=== PATIENT | female | born 1975 | race Caucasian/White ===

== ENCOUNTER 2020-07-25 09:09 | Outpatient (REF) | payer OTHER, SELFPAY | END 2020-07-25 09:10 | disposition home or self-care (01) | LOC: HO.LAB 09:09 | PROVIDERS: Visit Provider Internal Medicine | DX: Z20.822 Contact with and (suspected) exposure to COVID-19 (principal) | CPT/HCPCS: 36415; C9803; U0003; U0005 ==

== ENCOUNTER 2025-01-11 08:51 | Outpatient (REF) | payer MEDICARE, MEDICAID, SELFPAY ==
--- OUTSIDE RECORDS SUMMARY | 2025-01-11 09:13 | XMS_ITS | Clinical Summary ---
Author Organization [facility] Address [address] [place] [address] Phone Care Team Providers Care Circuit Breaker Supervisor Name Role Phone Jose J Ceron MD Primary Care Provider [phone] Allergies Active Allergy Reactions Criticality Noted Date Comments Adhesive Tape-Silicones 09/18/2020 Needs PAPER tape Ibuprofen Hives 09/27/2016 Latex Hives Medium 07/03/2024 Medications albuterol sulfate (ProAir RespiClick) 90 mcg/actuation aerosol powdr breath activated Inhale 2 Puffs into the lungs every 4 hours as needed (cough,wheezing shortness of breath). 02/24/20 24 Active cloNIDine (CATAPRES) 0.1 mg tablet Take 1 Tablet by mouth 2 times daily as needed. Active EPINEPHrine (EpiPen 2-Colt) 0.3 mg/0.3 mL injection Inject 0.3 mg into the muscle as needed for Other (anaphylactic reaction). 2-pack. Fill with whichever brand is covered by insurance. 05/16/20 20 Active omeprazole (PriLOSEC) [address] capsule if needed. 05/16/20 20 Active sertraline (ZOLOFT) 100 mg tablet Take 1 Tablet by mouth daily. Active SUMAtriptan (IMITREX) 50 mg tablet MAY REPEAT DOSE ONCE AFTER 2 HOURS, IF NEEDED. 10/15/19 21 Active polyethylene glycol (Golytely) 236-22.74-6.74 -5.86 gram solution Take 4L by mouth once for one dose. May substitue any PEG. Starting at 6PM the night before your procedure drink 1 8oz glasses at your own pace until you complete half of the gallon. Finish 2nd half of the gallon 5 hours before your procedure. 4000 mL 06/27/19 Active Additional Information Patient not taking.Reported on 11/21/2024 bisacodyL (DULCOLAX) 5 mg EC tablet Take 2 tablets by mouth right before beginning bowel prep. See instructions provided by the office 2 tablet 06/27/19 Active Additional Information Patient not taking.Reported on 11/21/2024 zolpidem (AMBIEN) 5 mg tablet TAKE 1/2-1 TABLET BY MOUTH EVERY NIGHT AT BEDTIME NEEDED INSOMNIA 02/24/20 Active hydrOXYzine HCL (ATARAX) 25 mg tablet Take 1 tablet (25 mg total) by mouth 2 (two) times a day if needed for anxiety. 02/24/20 24 Active hydrOXYzine HCL (ATARAX) 50 mg tablet Take 1 tablet (50 mg total) by mouth at bedtime as needed. 03/27/20 24 Active alclomethasone (ACLOVATE) 0.05 % cream Apply topically 2 (two) times a day. 30 g 11/22/19 25 026 Active cetirizine (ZyrTEC) 10 mg tabletIndicati ons:Allergic rhinitis, unspecified TAKE 1 TABLET BY MOUTH 1 TIME EACH DAY. 90 tablet 1 12/25/19 25 Active cetirizine (ZyrTEC) 10 mg tabletIndicati ons:Allergic rhinitis, unspecified Take 1 tablet (10 mg total) by mouth 1 (one) time each day. 30 tablet 11/22/19 25 025 Discontinued Active Problems Problem Noted Date Diagnosed Date Asthma 04/05/2024 Ingrown hair 05/03/2023 Overview (04/05/2024): Last Assessment & Plan: In right axilla. REassured not related to breast. Likely related to shaving. Take care and maybe avoid shaving for a couple weeks to see if resolves. Vitamin D deficiency 07/30/2021 Mixed hyperlipidemia 09/18/2019 Cervical spondylosis 07/04/2019 Major depression, recurrent (CMS/HCC V24) 2018 Overview (04/05/2024): Last Assessment & Plan: I encouraged Latisha to go to Dr. Ceron office today to get a refill of her amitriptyline and to make a follow up appt sooner than currently scheduled. Referred placed to and if insurance not accepted, pt is aware she should call other community therapist. This information was provided in her AVS. Patient contracts for safety. Diarrhea 01/31/2019 Overview (04/05/2024): Last Assessment & Plan: Recommended she follow up with PCP if continuing after discontinuation of abx. Morbid obesity with BMI of 4 0.0-44.9, adult ([facility] V24, [facility] V28) 09/27/2016 Insomnia 07/22/2016 Gastric perforation (CMS/[facility] V24, [facility] V28) 0 12/31/2014 GERD (gastroesophageal reflux disease) 3 Headache 08/02/2008 Encounters Date Type Department Care Team Description 11/21/2024 9:45 AM EDT Office Visit Adult Medicine [address] [phone] Jose J Ceron MD Episode of recurrent major depressive disorder, unspecified depression episode severity ([facility] V24) (Primary Dx); Allergic rhinitis, unspecified; Other fatigue; Snoring; Anxiety 10/16/2024 Telephone Adult Medicine [address] [phone] Jose J Ceron MD Med Refill from Last 3 Months Immunizations Name Administration Dates Next Due Moderna SARS-CoV-2 COVID-19, mRNA, LNP-S, preservative free 10/21/2020 Tdap Tetanus diptheria acell ular pertussis (Boostrix; Adacel) 7yo and older 02/18/2020,04/16/2008 Surgical History Surgery Date Site/Laterality Comments SECTION PROCEDURE: HISTORICAL TONSILLECTOMY PROCEDURE: HISTORICAL TONSILLECTOMY HYSTERECTOMY age 22 PROCEDURE: HISTORICAL HYSTERECTOMY; COMMENT: Ovaries retained, done for heavy bleeding LAPAROSCOPIC GASTRIC BANDING 02/05 PROCEDURE: LAP ADJUSTABLE GASTRIC BAND Medical History Medical History Date Comments Unspecified asthma(493.90) DX:Un specified asthma(493.90) History of laparoscopic adju stable gastric banding 12/26/2012 DX:History of laparoscopic a djustable gastric banding GERD (gastroesophageal reflu x disease) 12/26/2012 DX:GERD (gastroesophageal re flux disease) Carpal tunnel syndrome of right wrist 10/14/2020 DX:Carpal tunnel syndrome of right wrist Anxiety Family History Medical History Relation Name Comments Breast cancer Aunt 1 m 65 Throat cancer Aunt 2 mothers side Other: unknown cancer Aunt 3 metast asized, unknown primary Other: retinoblastoma Daughter 2 year s old. Diabetes Maternal Grandmother Hypertension Maternal Grandmother Diabetes Mother Hypertension Mother Heart attack Uncle Colon cancer Neg Hx Ovarian cancer Neg Hx Pancreatic cancer Neg Hx Prostate cancer Neg Hx Uterine cancer Neg Hx Relation Name Status Comments Aunt 1 m 65 Alive Aunt 2 Aunt 3 Daughter Maternal Grandmother Mother Uncle Social History Tobacco Use Types Packs/Day Years Used Date Smoking Tobacco: Never Smokeless Tobacco: Never Tobacco Cessation:Counseling Given: Not Answered Alcohol Use Standard Drinks/Week Comments Yes 0 (1 standard drink = 0.6 oz pur e alcohol) Interpersonal Safety Answer Date Record ed Physical Abuse 07/11/2024 Verbal Abuse 07/11/2024 Comments Unknown Sex and Gender Information Value Date Recorded Sex Assigned at Female 07/10/2024 4:05 PM EST Legal Sex Female 11:37 PM EST Gender Identity Female 07/10/2024 4:05 PM EST Sexual Orientation Straight 07/10/2024 4: 05 PM EST Obstetrics History Last Filed Vital Signs Vital Sign Reading Time Taken Comments Blood Pressure 114/76 11/21/2024 9:35 AM EDT Pulse 70 11/21/2024 9:35 AM EDT Temperature 36.6 C (97.8 F) 11/21/2024 9:35 AM EDT Respiratory Rate 14 11/21/2024 9:35 AM EDT Oxygen Saturation 100% 11/21/2024 9:35 AM EDT Inhaled Oxygen Concentration - - Weight 77.6 kg (171 lb) 11/21/2024 9:35 AM EDT Height 144.8 cm (4' 9 ) 11/21/2024 9:35 AM EDT Body Mass Index 37 11/21/2024 9:35 AM EDT Plan of Treatment Upcoming Encounters Date Type Department Care Team (Late st Contact Info) Description 02/25/2025 9:00 AM EDT Office Visit Adult Medicine [address] [phone] Merna Carballo NP [address] [place] [address] 08/26/2025 11:30 AM EDT Office Visit Adult Medicine [address] [phone] Jose J Ceron MD [address] [place], [place] [phone] Health Maintenance Due Date Last Done Comments Hepatitis B Vaccines (1 of 3 - 19+ 3-dose series) 1993 Pneumococcal Vaccine: 50+ Years (1 of 2 - PCV) 1993 Medicare Annual Wellness Visit 05/02/2022 Social Influencers of Health Screening 05/02/2022 COVID-19 Vaccine (3 - 2023-2 5 season) 2024 11/14/2020, 10/21/2020 Depression Screening 05/30/2024 02/24/2024 Zoster Vaccines (1 of 2) 2024 Influenza Vaccine (#1) 2025 Breast Cancer Screening 02/27/2026 02/28/20 24, 02/28/2024, 02/24/2017 Cholesterol Screening (Lipid Panel) 02/23/2029 02/24/2024, 02/24/2024 DTaP,Tdap,and Td Vaccines (3 - Td or Tdap) 02/17/2030 02/18/2020, 04/16/2008 Colorectal Cancer Screening: Colonoscopy 07/11/2034 07/11/2024 HIV Screening Completed 02/23/2018 Hepatitis C Screening Completed 02/23/2018 HIB Vaccines Aged Out No longer eligi ble based on patient's age to complete this topic HPV Vaccines Aged Out No longer eligi ble based on patient's age to complete this topic Hepatitis A Vaccines Aged Out No long er eligible based on patient's age to complete this topic IPV Vaccines Aged Out No longer eligi ble based on patient's age to complete this topic MMR Vaccines Aged Out No longer eligi ble based on patient's age to complete this topic Meningococcal ACWY Vaccine Aged Out N o longer eligible based on patient's age to complete this topic Meningococcal B Vaccine Aged Out No l onger eligible based on patient's age to complete this topic RSV Immunization Patients Under 20 months Aged Out No longer eligible b ased on patient's age to complete this topic Varicella Vaccines Aged Out No longer eligible based on patient's age to complete this topic Procedures Procedure Name Priority Date/Time Associated Diagnosis Comments CBC WITH AUTO DIFFERENTIAL Routine 11/21/2024 10:45 AM EDT Other fatigue THYROID STIMULATING HORMONE WITH REFLEX TO FREE T4 AND FREE T3 Routine 11/21/2024 10:45 AM EDT Other fatigue CBC AND DIFFERENTIAL Routine 11/21/2024 10:45 AM EDT Other fatigue COLONOSCOPY Routine 07/11/2024 2:43 PM EST Colon cancer screening SCREENING MAMMOGRAPHY BI 2-VIEW BREAST INC CAD Routine 02/28/2024 3:53 PM EDT Encounter for screening mammogram for malignant neoplasm of breast DEPRESSION SCREENING Routine 02/24/2024 LIPID PANEL Routine 02/24/2024 HEPATITIS C SCREENING Routine 02/23/2018 HIV SCREENING Routine 02/23/2018 from Last 3 Months or Most Recently Relevant to Health Maintenance Results * Thyroid stimulating hormone with reflex to free t4 and free t3 (11/21/2024 10:45 AM EDT) TSH 2.28 0.40 - 4.00 mcIU/mL LAB CHEMISTRY METHOD 11/21/2024 1:16 PM EDT [facility] Blood Venous blood specimen / Unknown Venipuncture / Unknown 11/21/2024 10:45 AM EDT 11/21/2024 10:45 AM EDT us Jose J Ceron MD LAB BLOOD ORDERABLES Final Resu lt [facility] [address] [place] [address], [place] [phone] * (ABNORMAL) CBC auto differential (11/21/2024 10:45 AM EDT) WBC 5.2 4.8 - 10.8 K/mcL LAB HEMETOLOGY METHOD 11/21/2024 12:25 PM EDT [facility] RBC 5.40(H) 3.80 - 4.80 M/mcL LAB HEMETOLOGY METHOD 11/21/2024 12:25 PM EDT [facility] Hemoglobin 15.1 11.5 - 16.0 g/dL LAB HEMETOLOGY METHOD 11/21/2024 12:25 PM EDT [facility] Hematocrit 45.4 35.0 - 47.0 % LAB HEMETOLOGY METHOD 11/21/2024 12:25 PM EDT [facility] MCV 83.9 79.0 - 98.0 FL LAB HEMETOLOGY METHOD 11/21/2024 12:25 PM EDT [facility] MCH 27.9 27.0 - 32.0 pcg LAB HEMETOLOGY METHOD 11/21/2024 12:25 PM EDT [facility] MCHC 33.3 32.0 - 37.0 g/dL LAB HEMETOLOGY METHOD 11/21/2024 12:25 PM EDT [facility] RDW 12.8 11.0 - 15.0 % LAB HEMETOLOGY METHOD 11/21/2024 12:25 PM EDT [facility] Platelets 299 130 - 400 K/mcL LAB HEMETOLOGY METHOD 11/21/2024 12:25 PM EDT [facility] MPV 12.0(H) 7.0 - 11.0 FL LAB HEMETOLOGY METHOD [facility] NRBC 0.0 <1.0 % LAB HEMETOLOGY METHOD 11/21/2024 12:25 PM [facility] NRBC Absolute 0.00 <0.10 K/mcL LAB HEMETOLOGY METHOD 11/21[facility]2024 [facility] Neutrophils Relative 53.2 % LAB HEMETOLOGY METHOD 11/21/2024 12:25 PM [facility] Lymphocytes Relative 37.7 % LAB HEMETOLOGY METHOD 11/21/2024 12:25 PM [facility] Monocytes Relative 7.5 % LAB HEMETOLOGY METHOD 11/21/2024 12:25 PM [facility] Eosinophils Relative 0.8 % LAB HEMETOLOGY METHOD 11/21/2024 12:25 PM [facility] Basophils Relative 0.6 % LAB HEMETOLOGY METHOD 11/21/2024 12:25 PM [facility] Immature Granulocytes Relative 0.2 % LAB HEMETOLOGY METHOD 11/21/2024 12:25 PM [facility] Neutrophils Absolute 2.79 1.50 - 7.00 K/mcL LAB HEMETOLOGY METHOD 11/21/2024 12:25 PM [facility] Lymphocytes Absolute 1.97 1.00 - 5.00 K/mcL LAB HEMETOLOGY METHOD 11/21/2024 12:25 PM [facility] Monocytes Absolute 0.39 0.20 - 1.00 K/mcL LAB HEMETOLOGY METHOD 11/21/2024 12:25 PM [facility] Eosinophils Absolute 0.04 0.00 - 0.50 K/mcL LAB HEMETOLOGY METHOD 11/21/2024 12:25 PM EDT [facility] Basophils Absolute 0.03 0.00 - 0.20 K/mcL LAB HEMETOLOGY METHOD 11/21/2024 12:25 PM EDT [facility] Immature Granulocytes Absolute 0.01 0.00 - 0.03 K/mcL LAB HEMETOLOGY METHOD 11/21/2024 12:25 PM EDT [facility] Blood Venous blood specimen / Unknown Venipuncture / Unknown 11/21/2024 10:45 AM EDT 11/21/2024 10:45 AM EDT us Jose J Ceron MD LAB BLOOD ORDERABLES Final Resu lt [facility] [address] [place] [address], * COLONOSCOPY Anesthesia - MAC; RUST ENDOSCOPY (07/11/2024 2:43 PM EST) Anatomical Region Laterality Modality Endoscopy 07/11/2024 2:19 PM EST Impressions 07/11/2024 2:45 PM EST - One diminutive polyp in the descending colon, removed with a cold biopsy forceps. Resected and retrieved. - Internal hemorrhoids. - The examination was otherwise normal. Recommendation: - Discharge patient to home. - Await pathology results. - Repeat colonoscopy in 10 years for surveillance. Narrative 07/11/2024 2:45 PM EST [facility] GI Patient Name: Morro Mckeon Procedure Date: 07/11/2024 2:19 PM Date of : 1975 Age: 48 Gender: Female Note Status: Finalized Attending MD: Shay Narvaez MD, Procedure Date No Time: 07/11/2024 Procedure: Colonoscopy Indications: Screening for colorectal malignant neoplasm Providers: Shay Narvaez MD Referring MD: Shay Narvaez MD Medicines: Monitored Anesthesia Care Complications: No immediate complications. Estimated blood loss: Minimal. Estimated Blood Loss: Estimated blood loss was minimal. Procedure: Pre-Anesthesia Assessment: - Prior to the procedure, a History and Physical was performed, and patient medications and allergies were reviewed. The patient is competent. The risks and benefits of the procedure and the sedation options and risks were discussed with the patient. All questions were answered and informed consent was obtained. Patient identification and proposed procedure were verified by the physician, the nurse, the window sash installer and the donor services technician in the pre-procedure area in the endoscopy suite. Mental Status Examination: alert and oriented. Airway Examination: normal oropharyngeal airway and neck mobility. Respiratory Examination: clear to auscultation. CV Examination: normal. Prophylactic Antibiotics: The patient does not require prophylactic antibiotics. Prior Anticoagulants: The patient has taken no anticoagulant or antiplatelet agents. ASA Grade Assessment: II - A patient with mild systemic disease. After reviewing the risks and benefits, the patient was deemed in satisfactory condition to undergo the procedure. The anesthesia plan was to use monitored anesthesia care (MAC). Immediately prior to administration of medications, the patient was re-assessed for adequacy to receive sedatives. The heart rate, respiratory rate, oxygen saturations, blood pressure, adequacy of pulmonary ventilation, and response to care were monitored throughout the procedure. The physical status of the patient was re-assessed after the procedure. After I obtained informed consent, the scope was passed under direct vision. Throughout the procedure, the patient's blood pressure, pulse, and oxygen saturations were monitored continuously. The Colonoscope was introduced through the anus and advanced to the cecum, identified by appendiceal orifice and ileocecal valve. The colonoscopy was performed without difficulty. The patient tolerated the procedure well. The quality of the bowel preparation was good. Findings: The perianal and digital rectal examinations were normal. A diminutive polyp was found in the descending colon. The polyp was sessile. The polyp was removed with a cold biopsy forceps. Resection and retrieval were complete. Estimated blood loss was minimal. Internal hemorrhoids were found during retroflexion. The hemorrhoids were Grade I (internal hemorrhoids that do not prolapse). The exam was otherwise without abnormality. Procedure Code(s): --- Professional --- 17961, Colonoscopy, flexible; with biopsy, single or multiple Diagnosis Code(s): --- Professional --- D12.4, Benign neoplasm of descending colon CPT copyright 2020 [employer]. All rights reserved. The codes documented in this report are preliminary and upon magnetic tape composer operator review may be revised to meet current compliance requirements. Shay Narvaez MD 07/11/2024 2:45:41 PM This report has been signed electronically.Shay Narvaez MD Number of Addenda: 0 Note Initiated On: 07/11/2024 2:19 PM Scope Withdrawal Time: 0 hours 11 minutes 38 seconds Scope In: 2:28:08 PM Scope Out: 2:42:43 PM Endoscopy Department at [facility] - [address] [place] [phone] Procedure Note Shay Narvaez MD - 07/11/2024 [facility] GI Patient Name: Morro Mckeon Procedure Date: 07/11/2024 2:19 PM Date of : 1975 Age: 48 Gender: Female Note Status: Finalized Attending MD: Shay Narvaez MD, Procedure Date No Time: 07/11/2024 Procedure: Colonoscopy Indications: Screening for colorectal malignant neoplasm Providers: Shay Narvaez MD Referring MD: Shay Narvaez MD Medicines: Monitored Anesthesia Care Complications: No immediate complications. Estimated blood loss: Minimal. Estimated Blood Loss: Estimated blood loss was minimal. Procedure: Pre-Anesthesia Assessment: - Prior to the procedure, a History and Physicalwas performed, and patient medications and allergieswere reviewed. The patient is competent. The risks and benefits of the procedure and the sedation optionsand risks were discussed with the patient. Allquestions were answered and informed consent was obtained. Patient identification and proposed procedure were verified by the physician, the nurse, theanesthetist and the donor services technician in the pre-procedure area in the endoscopy suite. Mental Status Examination: alertand oriented. Airway Examination: normal oropharyngeal airway and neck mobility. Respiratory Examination: clear to auscultation. CV Examination: normal. Prophylactic Antibiotics: The patient does notrequire prophylactic antibiotics. Prior Anticoagulants: The patient has taken no anticoagulant or antiplatelet agents. ASA Grade Assessment: II - A patient withmild systemic disease. After reviewing the risks and benefits, the patient was deemed in satisfactory condition to undergo the procedure. The anesthesia plan was to use monitored anesthesia care (MAC). Immediately prior to administration of medications, the patient was re-assessed for adequacy to receive sedatives. The heart rate, respiratory rate, oxygen saturations, blood pressure, adequacy of pulmonary ventilation, and response to care were monitored throughout the procedure. The physical status ofthe patient was re-assessed after the procedure. After I obtained informed consent, the scope was passed under direct vision. Throughout theprocedure, the patient's blood pressure, pulse, and oxygen saturations were monitored continuously. The Colonoscope was introduced through the anus and advanced to the cecum, identified by appendiceal orifice and ileocecal valve. The colonoscopy was performed without difficulty. The patient tolerated the procedure well. The quality of the bowel preparation was good. Findings: The perianal and digital rectal examinations were normal. A diminutive polyp was found in the descendingcolon. The polyp was sessile. The polyp was removed with a cold biopsy forceps. Resection and retrieval were complete. Estimated blood loss was minimal. Internal hemorrhoids were found duringretroflexion. The hemorrhoids were Grade I (internal hemorrhoids that do not prolapse). The exam was otherwise without abnormality. Procedure Code(s): --- Professional --- 69337, Colonoscopy, flexible; with biopsy, singleor multiple Diagnosis Code(s): --- Professional --- D12.4, Benign neoplasm of descending colon CPT copyright 2020 [employer]. All rights reserved. The codes documented in this report are preliminary and upon magnetic tape composer operator reviewmay be revised to meet current compliance requirements. Shay Narvaez MD 07/11/2024 2:45:41 PM This report has been signed electronically.Shay Narvaez MD Number of Addenda: 0 Note Initiated On: 07/11/2024 2:19 PM Scope Withdrawal Time: 0 hours 11 minutes 38 seconds Scope In: 2:28:08 PM Scope Out: 2:42:43 PM Endoscopy Department at [facility] - [address] [place] [phone] IMPRESSION: - One diminutive polyp in the descending colon, removed with a cold biopsy forceps. Resected and retrieved. - Internal hemorrhoids. - The examination was otherwise normal. Recommendation: - Discharge patient to home. - Await pathology results. - Repeat colonoscopy in 10 years forsurveillance. us Shay Narvaez MD GI~PROCEDURE ORDERABLES Fin al Result * SCREENING MAMMOGRAPHY BI 2-VIEW BREAST INC CAD (02/28/2024 3:53 PM EDT) Anatomical Region Laterality Modality Radiographic Gillian ging 05/03/2023 11:4 3 AM EST Narrative 02/29/2024 1:43 PM EDT This is a summary report. The complete report is available in the patient's medical record. If you cannot access the medical record, please contact the sending organization for a detailed fax or copy. Full field digital screening tomosynthesis mammography, reviewed with CAD and compared to previous. The breast tissue is heterogeneously dense, limiting sensitivity. No suspicious mass, architectural distortion or suspicious calcifications are identified. IMPRESSION: : Dense breast tissue, limiting the sensitivity of mammography. No mammographic evidence of malignancy. BIRADS 1-Negative; N. Breast density: The breasts are heterogeneously dense, which may obscure small masses. 5 year breast cancer risk assessment N/A Lifetime breast cancer risk assessment N/A Breast cancer risk category Breast cancer risk not assessed Location: [facility], [address] [place] [address], [phone], [phone] Procedure Note Sybil aTm MD - 03/27/2024 This is a summary report. The complete report is available in thepatient's medical record. If you cannot access the medical record, pleasecontact the sending organization for a detailed fax or copy. Full field digital screening tomosynthesis mammography, reviewed with CADand compared to previous. The breast tissue is heterogeneously dense,limiting sensitivity. No suspicious mass, architectural distortion orsuspicious calcifications are identified. IMPRESSION: : Dense breast tissue, limiting the sensitivity of mammography. Nomammographic evidence of malignancy. BIRADS 1-Negative; N. Breast density: The breasts are heterogeneously dense, which may obscuresmall masses. 5 year breast cancer risk assessment N/A Lifetime breast cancer risk assessment N/A Breast cancer risk category Breast cancer risk not assessed Location: [facility], [address] [place] [address], [phone], [phone] us Angie E Eppsteiner MD IMG XR PROCEDURES Final Res ult * Depression Screening (02/24/2024) Pathologist [facility] Depression Screening Abstracted Historical Provider HEALTH MAINTENANCE Final Result * (ABNORMAL) Lipid panel (02/24/2024) [facility] LDL/HDL Ratio 3 0 - 4 Triglycerides 154(A) 0 - 150 mg/dL Cholesterol 168 0 - 200 mg/dL HDL 49 >=40 mg/dL LDL Cholesterol 89 0 - 100 mg/dL Blood Venous blood specimen / Unknown Result [facility] Historical Provider LAB BLOOD ORDERABLES Sho l Result * HIV Screening (02/23/2018) [facility] HIV Screening Abstracted [facility] Provider HEALTH MAINTENANCE Final Result * Hepatitis C Screening (02/23/2018) [facility] Hepatitis C Screening Abstracted [facility] Provider HEALTH MAINTENANCE Final Result from Last 3 Months or Most Recently Relevant to Health Maintenance Insurance MEDICARE MEDICAID - [place] Care Teams Circuit Breaker Supervisor Relationship Specialty Start Date End Date Jose J Ceron MD [address] [place] [phone] PCP - General 01/25/07
--- NOTE | 2025-01-11 09:43 | MHC.AU.HA1 ---
Hearing Aid Evaluation Date of Visit: 01/11/25 Historical Information: Description of Hearing: Mild sloping to severe sensorineural hearing loss Au as evaluated at ENT on 12/12/2024. Current personal amplification information, if applicable: NONE Summary: Jazmine reports hearing declined rapidly following stomach infection and surgery in 2014. She notes significant difficulty hearing speech, trouble in groups and restaurants. Discussed benefits and limitations of amplification and adjustment to amplification. Reviewed hearing aid options. Recommended RITE style hearing aid, binaural. Jazmine chose rechargeable. She has an iPhone that she would like to be able to pair the hearing aids with. Hearing Aid Prescription: Based on the individual?s shared listening needs, communication environments, dexterity, desire for connectivity, and personal preferences, the following prescription for amplification has been made: Right ear: Make, Model, Color: Oticon Intent 2 R chroma beige Battery Size: Rechargeable Child Care Aide/Slim Tube: 2/85 Type of Earmold/Dome/CShell/SlimTip: 8mm dbl guillory Left ear: Make, Model, Color: Oticon Intent 2 R chroma beige Battery Size: Rechargeable Child Care Aide/Slim Tube: 2/85 Type of Earmold/Dome/CShell/SlimTip: 8mm dbl kahlil Plan of Care: Patient wishes to purchase hearing aids as prescribed Action Taken/Action Needed: Hearing Instrument Fitting to be scheduled when materials arrive Primary Diagnosis: H90.3 Bilateral Sensorineural Hearing Loss Signature: Provider: Delores Garza, CCC-A
== END 2025-01-11 08:52 | disposition home or self-care (01) ==
LOC: HO.HAP 08:51
PROVIDERS: PCP Internal Medicine; Visit Provider Otolaryngology
DX: Z46.1 Encounter for fitting and adjustment of hearing aid (principal); H90.3 Sensorineural hearing loss, bilateral
CPT/HCPCS: 92591

== ENCOUNTER 2025-02-14 12:35 | Outpatient (REF) | payer MEDICARE, MEDICAID, SELFPAY ==
--- NOTE | 2025-02-14 13:34 | MHC.AU.HA2 ---
Hearing Instrument Fitting- Adult- Binaural Date of Visit: 02/14/25 Hearing Instruments Dispensed: Right Ear: Make, Model, Color, Serial Number: Oticon Intent 2 miniRITE-R SN: [id number] Color: Chroma Beige Bumper Machine Operator Repair Warranty: 02/14/2028 Bumper Machine Operator Loss and Damage Warranty: 02/14/2028 [facility] Service Plan: 02/14/2026 Battery Size: Rechargeable Direct Support Worker/Slim Tube: 2/85 Earmold/Dome/CShell/SlimTip: 8mm double guillory dome (no retention tail) Type of Wax Guard: miniFit Left Ear: Make, Model, Color, Serial Number: Oticon Intent 2 miniRITE-R SN: [id number] Color: Chroma Beige Bumper Machine Operator Repair Warranty: 02/14/2028 Bumper Machine Operator Loss and Damage Warranty: 02/14/2028 [facility] Service Plan: 02/14/2026 Battery Size: Rechargeable Direct Support Worker/Slim Tube: 2/85 Earmold/Dome/CShell/SlimTip: 8mm double guillory dome (no retention tail) Type of Wax Guard: miniFit Accessories/Assistive Technology: Oticon Grizzly Worker MiniRITE SN: [id number] Summary of Fitting: Accompanied by daughter. Ran feedback analyzer and real ear measures. Good match to target, left ear; Underfit right ear due to limits of feedback curve. Discussed custom EMs, will readdress at follow up. Otherwise comfortable at real ear settings. Discussed care, use, and rechargeability including manually turning on/off, VC use, and changing domes and wax guards. Practiced insertion and removal. Paired to cell phone. Encouraged daily, consistent use and explained acclimatization period. Recommendations: A hearing instrument follow-up was scheduled. Diagnosis Code(s): Primary Diagnosis: H90.3 Bilateral Sensorineural Hearing Loss Signature: Provider: Delores Jones, [facility]
--- OUTSIDE RECORDS SUMMARY | 2025-02-14 14:40 | XMS_ITS ---
Author Name [facility] Organization Unknown Care Team Organization Name Specialty Phone Email Start Date End Da te [facility] Tiana Velasco Primary Care 11/05/20222023 [facility] SEAN LR Primary Care 04/06/2022
--- OUTSIDE RECORDS SUMMARY | 2025-02-14 14:40 | XMS_ITS | Clinical Summary ---
Author Organization [facility] Address [address] [place] [address] Phone Care Team Providers Care Manager Community Outreach Name Role Phone Jose J Ceron MD Primary Care Provider [phone] Allergies Active Allergy Reactions Criticality Noted Date Comments Adhesive Tape-Silicones 09/18/2020 Needs PAPER tape Ibuprofen Hives 09/27/2016 Latex Hives Medium 07/03/2024 Medications albuterol sulfate (ProAir RespiClick) 90 mcg/actuation aerosol powdr breath activated 02/24/20 24 Active EPINEPHrine (EpiPen 2-Colt) 0.3 mg/0.3 mL injection Inject 0.3 mg into the muscle as needed for Other (anaphylactic reaction). 2-pack. Fill with whichever brand is covered by insurance. 05/16/20 20 Active sertraline (ZOLOFT) 100 mg tablet Take 1 Tablet by mouth daily. Active hydrOXYzine HCL (ATARAX) 50 mg tablet Take 1 tablet (50 mg total) by mouth at bedtime as needed. 03/27/20 24 Active alclomethasone (ACLOVATE) 0.05 % cream Apply topically 2 (two) times a day. 30 g 11/22/19 25 026 Active cetirizine (ZyrTEC) 10 mg tabletIndicatio ns:Allergic rhinitis, unspecified TAKE 1 TABLET BY MOUTH 1 TIME EACH DAY. 90 tablet 1 12/25/19 25 Active cloNIDine (CATAPRES) 0.1 mg tablet Take 1 Tablet by mouth 2 times daily as needed. Discontinu ed(Therapy completed) omeprazole (PriLOSEC) [address] capsule if needed. 05/16/20 20 Discontinu ed(Therapy completed) SUMAtriptan (IMITREX) 50 mg tablet MAY REPEAT DOSE ONCE AFTER 2 HOURS, IF NEEDED. 10/15/19 21 Discontinu ed(Therapy completed) polyethylene glycol (Golytely) 236-22.74-6.74 -5.86 gram solution Take 4L by mouth once for one dose. May substitue any PEG. Starting at 6PM the night before your procedure drink 1 8oz glasses at your own pace until you complete half of the gallon. Finish 2nd half of the gallon 5 hours before your procedure. 4000 mL 06/27/19 Discontinu ed(Therapy completed) bisacodyL (DULCOLAX) 5 mg EC tablet Take 2 tablets by mouth right before beginning bowel prep. See instructions provided by the office 2 tablet 06/27/19 Discontinu ed(Therapy completed) zolpidem (AMBIEN) 5 mg tablet TAKE 1/2-1 TABLET BY MOUTH EVERY NIGHT AT BEDTIME NEEDED INSOMNIA 02/24/20 24 Discontinu ed(Therapy completed) hydrOXYzine HCL (ATARAX) 25 mg tablet Take 1 tablet (25 mg total) by mouth 2 (two) times a day if needed for anxiety. 02/24/20 24 Discontinu ed(Therapy completed) nitrofurantoin, macrocrystal-mo nohydrate, (MACROBID) 100 mg capsule Take 1 capsule (100 mg total) by mouth 2 (two) times a day for 5 days. 10 each 02/09/20 25 Active Problems Problem Noted Date Diagnosed Date Asthma 04/05/2024 Ingrown hair 05/03/2023 Overview (04/05/2024): Last Assessment & Plan: In right axilla. REassured not related to breast. Likely related to shaving. Take care and maybe avoid shaving for a couple weeks to see if resolves. Vitamin D deficiency 07/30/2021 Mixed hyperlipidemia 09/18/2019 Cervical spondylosis 07/04/2019 Major depression, recurrent ([facility] V24) 2018 Overview (04/05/2024): Last Assessment & [...] obesity with BMI of 4 0.0-44.9, adult ([facility] V24, [facility] V28) 09/27/2016 Insomnia 07/22/2016 Gastric perforation ([facility] V24, [facility] V28) 0 12/31/2014 GERD (gastroesophageal reflux disease) 3 Headache 08/02/2008 Encounters Date Type Department Care Team Description 02/06/2025 11:15 AM EDT Office Visit Adult Medicine [address] [phone] Jaymie Andre PA Dysuria (Primary Dx) 02/06/2025 Nurse Triage Adult Medicine [address] [phone] Jose J Ceron MD 11/21/2024 9:45 AM EDT Office Visit Adult Medicine [address] [phone] Jose J Ceron MD Episode of recurrent major depressive disorder, unspecified depression episode severity ([facility] V24) (Primary Dx); Allergic rhinitis, unspecified; Other fatigue; Snoring; Anxiety from Last 3 Months Immunizations Name Administration [...] Sign Reading Time Taken Comments Blood Pressure 118/68 02/06/2025 11:29 AM EDT Pulse 58 02/06/2025 11:29 AM EDT Temperature 36.2 C (97.1 F) 02/06/2025 11:29 AM EDT Respiratory Rate 16 02/06/2025 11:2 9 AM EDT Oxygen Saturation 98% 02/06/2025 11: 29 AM EDT Inhaled Oxygen Concentration - - Weight 79.3 kg (174 lb 14.4 oz) 025 11:29 AM EDT Height 143.5 cm (4' 8.5 ) 02/06/2025 11 :29 AM EDT Body Mass Index 38.52 02/06/2025 11:29 AM EDT Plan of Treatment Upcoming Encounters Date Type Department Care Team (Late st Contact Info) Description 02/25/2025 9:00 AM EDT Office Visit Adult Medicine [address] [phone] Merna Carballo NP [address] [place] [address] 08/26/2025 11:30 AM EDT Office Visit [address] [phone] Jose J Ceron MD [address] [place] [address] Health Maintenance Due Date Last Done Comments Hepatitis B Vaccines (1 of 3 - 19+ 3-dose series) 1993 Pneumococcal Vaccine: 50+ Years (1 of 2 - PCV) 1993 Medicare Annual Wellness Visit 05/02/2022 Social Influencers of Health Screening 05/02/2022 Depression Screening 05/30/2024 02/24/2024 Zoster Vaccines (1 of 2) 2024 COVID-19 Vaccine (3 - 2024-2 6 season) 2025 11/14/2020, 10/21/2020 Influenza Vaccine (#1) 2025 Breast Cancer Screening [...] Procedure Name Priority Date/Time Associated Diagnosis Comments PIKE URINE CULTURE TUBE Routine 02/07/20 12:26 PM EDT Dysuria URINALYSIS WITH REFLEX MICROSCOPIC AND CULTURE Routine 02/06/2025 11:58 AM EDT Dysuria URINALYSIS WITH REFLEX MICROSCOPIC AND CULTURE Routine 02/06/2025 11:58 AM EDT Dysuria CULTURE URINE Routine 02/06/2025 11:58 AM EDT Dysuria POLYSOMNOGRAPHY Routine 01/18/2025 10:49 AM EDT CBC WITH AUTO DIFFERENTIAL Routine 11/21/2024 10:45 [...] Recently Relevant to Health Maintenance Results * Pike urine culture tube (02/06/2025 12:26 PM EDT) Pathologist [facility] Extra Tube Hold for add-ons. 02/06/2025 3:[address] [facility] Comment:Auto resulted. Urine Urine specimen obtained by clean catch procedure / Unknown Non-blood Collection / Unknown 02/06/2025 12:26 PM EDT 02/06/2025 12:26 PM EDT us Jaymie SALDIVAR LAB URINE ORDERABLES Final Re sult [facility] [address] [place] [address], [place] [phone] * (ABNORMAL) Urinalysis with reflex microscopic and culture (02/06/2025 11:58 AM EDT) Pathologist [facility] Specific [place] Urine 1.011 1.003 - 1.030 LAB URINALYSIS - AUTOMATED METHOD 02/06/2025 2:[address] [facility] pH, Urine 8.0 5.0 - 8.0 pH LAB URINALYSIS - AUTOMATED METHOD 02/06/2025 2:[address] [facility] Leukocytes, Urine Trace(A) Negative LAB URINALYSIS - AUTOMATED METHOD 02/06/2025 2:[address] [facility] Nitrite, Urine Negative Negative LAB URINALYSIS - AUTOMATED METHOD 02/06/2025 2:12 PM [facility] Protein, Urine Negative <=Trace mg/dL LAB URINALYSIS - AUTOMATED METHOD 02/06/2025 2:12 PM [facility] Glucose, Urine Negative Negative mg/dL LAB URINALYSIS - AUTOMATED METHOD 02/06/2025 2:12 PM [facility] Ketones, Urine Negative Negative mg/dL LAB URINALYSIS - AUTOMATED METHOD 02/06/2025 2:12 PM [facility] Urobilinogen , Urine 0.2 0.2 - 1.0 mg/dL LAB URINALYSIS - AUTOMATED METHOD 02/06/2025 2:12 PM [facility] Bilirubin, Urine Negative Negative LAB URINALYSIS - AUTOMATED METHOD 02/06/2025 2:12 PM [facility] Blood, Urine Negative Negative LAB URINALYSIS - AUTOMATED METHOD 02/06/2025 2:12 PM [facility] RBC, Urine 1.8 0 - 4 /HPF LAB URINALYSIS - AUTOMATED METHOD 02/06/2025 2:12 PM [facility] WBC, Urine 31.9(H) 0 - 4 /HPF LAB URINALYSIS - AUTOMATED METHOD 02/06/2025 2:12 PM [facility] Squamous Epithelial, Urine 55 0 - 60 /LPF LAB URINALYSIS - AUTOMATED METHOD 02/06/2025 2:12 PM [facility] Bacteria, Urine Moderate(A) Negative /HPF LAB URINALYSIS - AUTOMATED METHOD 02/06/2025 2:12 PM [facility] Hyaline Casts, Urine 3.2(H) 0 - 3 /LPF LAB URINALYSIS - AUTOMATED METHOD 02/06/2025 2:12 PM [facility] Urine Urine specimen obtained by clean catch procedure / Unknown Non-blood Collection / Unknown 02/06/2025 11:58 AM EDT 02/06/2025 11:58 AM EDT us Jaymie SALDIVAR LAB URINE ORDERABLES Final Re sult [facility] [address] [place] [address], * (ABNORMAL) Culture urine (02/06/2025 11:58 AM EDT) Culture, Urine 50,000-100,000 CFU/mL Escherichia coli(A) FLAKO 02/09/2025 9:26 AM EDT [facility] Comment: The organism value for this result has been updated. These results have been appended to the previously preliminary verified report. This is an edited result. Previous organism was Gram negative bacilli on 02/08/2025 at 1139 EDT. Urine Urine specimen obtained by clean catch procedure / Unknown Non-blood Collection / Unknown 02/06/2025 11:58 AM EDT 02/06/2025 2:12 PM EDT Narrative Organism Antibiotic Method Susceptibility Escherichia coli Amoxicillin/Clavulanate FLAKO 4 ug/ml: Susceptible Escherichia coli Ampicillin/Sulbactam FLAKO <=2 ug/ml: Susceptible Escherichia coli Piperacillin/Tazobactam FLAKO <=4 ug/ml: Susceptible Escherichia coli Cefazolin (Urine) FLAKO <=1 ug/ml: Susceptible Escherichia coli Cefoxitin FLAKO <=4 ug/ml: Susceptible Escherichia coli Ceftazidime FLAKO <=0.5 ug/ml: Susceptible Escherichia coli Ceftriaxone FLAKO <=0.25 ug/ml: Susceptible Escherichia coli Cefepime FLAKO <=0.12 ug/ml: Susceptible Escherichia coli Meropenem FLAKO <=0.25 ug/ml: Susceptible Escherichia coli Amikacin FLAKO 4 ug/ml: Susceptible Escherichia coli Gentamicin FLAKO <=1 ug/ml: Susceptible Escherichia coli Ciprofloxacin FLAKO 0.25 ug/ml: Susceptible Escherichia coli Levofloxacin FLAKO 0.5 ug/ml: Susceptible Escherichia coli Nitrofurantoin FLAKO <=16 ug/ml: Susceptible Escherichia coli Trimethoprim/Sulfamethoxazole FLAKO <=20 ug/ml: Susceptible Jaymie SALDIVAR LAB MICROBIOLOGY - GENERAL OR DERABLES Final Result [facility] [address] [place] [address], [place] [phone] * Polysomnography (01/18/2025 10:49 AM EDT) Historical Provider [facility]ENTER ORDERABLES F inal Result * Thyroid stimulating hormone with reflex to free t4 and free t3 (11/21/2024 10:45 AM EDT) [facility] TSH 2.28 0.40 - 4.00 mcIU/mL LAB CHEMISTRY METHOD 11/21/2024 1:[address] [facility] Blood Venous blood specimen / Unknown Venipuncture / Unknown 11/21/2024 10:45 AM EDT 11/21/2024 10:45 AM EDT Jose J Ceron MD LAB BLOOD ORDERABLES Final Resu lt [facility] [address] [place] [address], [place] [phone] * (ABNORMAL) CBC auto differential (11/21/2024 10:45 AM EDT) Pathologist [facility] WBC 5.2 4.8 - 10.8 K/mcL LAB HEMETOLOGY METHOD 11/21/2024 12:[address] [facility] RBC 5.40(H) 3.80 - 4.80 M/mcL LAB HEMETOLOGY METHOD 11/21/2024 12:[address] [facility] Hemoglobin 15.1 11.5 - 16.0 g/dL LAB HEMETOLOGY METHOD 11/21/2024 12:[address] [facility] Hematocrit 45.4 35.0 - 47.0 % LAB HEMETOLOGY METHOD 11/21/2024 12:[address] [facility] MCV 83.9 79.0 - 98.0 FL LAB HEMETOLOGY METHOD 11/21/2024 12:[address] [facility] MCH 27.9 27.0 - 32.0 pcg LAB HEMETOLOGY METHOD [facility] MCHC 33.3 32.0 - 37.0 g/dL LAB HEMETOLOGY METHOD 11/21/2024 12:[address] [facility] RDW 12.8 11.0 - 15.0 % LAB HEMETOLOGY METHOD 11/21[facility]2024 [facility] Platelets 299 130 - 400 K/mcL LAB HEMETOLOGY METHOD 11/21[facility]2024 [facility] MPV 12.0(H) 7.0 - 11.0 FL LAB HEMETOLOGY METHOD 11/21/2024 12:[address] [facility] NRBC 0.0 <1.0 % LAB HEMETOLOGY METHOD [facility]/21[facility]2024 [facility] NRBC Absolute 0.00 <0.10 K/mcL LAB HEMETOLOGY METHOD 11/21/2024 12:25 PM [facility] Neutrophils Relative 53.2 % LAB HEMETOLOGY METHOD 11/21/2024 12:[address] [facility] Lymphocytes Relative 37.7 % LAB HEMETOLOGY METHOD 11/21[facility]2024 [facility] Monocytes Relative 7.5 % LAB HEMETOLOGY METHOD 11/21/2024 12:25 PM [facility] Eosinophils Relative 0.8 % LAB HEMETOLOGY METHOD 11/21[facility]2024 [facility] Basophils Relative 0.6 % LAB HEMETOLOGY METHOD 11/21/2024 12:[address] [facility] Immature Granulocytes Relative 0.2 % LAB HEMETOLOGY METHOD 11/21/2024 12:[address] [facility] Neutrophils Absolute 2.79 1.50 - 7.00 K/mcL LAB HEMETOLOGY METHOD 11/21/2024 12:[address] [facility] Lymphocytes Absolute 1.97 1.00 - 5.00 K/mcL LAB HEMETOLOGY METHOD 11/21/2024 12:[address] [facility] Monocytes Absolute 0.39 0.20 - 1.00 K/mcL LAB HEMETOLOGY METHOD 11/21/2024 12:[address] [facility] Eosinophils Absolute 0.04 0.00 - 0.50 K/mcL LAB HEMETOLOGY METHOD 11/21/2024 12:[address] [facility] Basophils Absolute 0.03 0.00 - 0.20 K/mcL LAB HEMETOLOGY METHOD 11/21/2024 12:[address] [facility] Immature Granulocytes Absolute 0.01 0.00 - 0.03 K/mcL LAB HEMETOLOGY METHOD 11/21/2024 12:[address] [facility] Blood Venous blood specimen / Unknown Venipuncture / Unknown 11/21/2024 10:45 AM EDT 11/21/2024 10:45 AM EDT us Jose J Ceron MD LAB BLOOD ORDERABLES Final Resu lt [facility]) [facility] [address] [place] [address], * COLONOSCOPY Anesthesia - MAC; [facility] ENDOSCOPY (07/11/2024 2:43 PM EST) Anatomical Region [...] for surveillance. Narrative 07/11/2024 2:45 PM EST [facility] GI Patient Name: Morro Mckeon Procedure Date: [...] verified by the physician, the nurse, the platinum smith and the speech therapist technician in the pre-procedure area in the [...] without abnormality. Procedure Code(s): --- Professional --- 67048, Colonoscopy, flexible; with biopsy, single or multiple Diagnosis Code(s): --- Professional --- D12.4, Benign neoplasm of descending colon CPT copyright 2020 [employer]. All rights reserved. The codes documented in this report are preliminary and upon receiver review may be revised to meet current compliance requirements. Shay Narvaez MD 07/11/2024 2:45:41 PM This report has been signed electronically.Shay Narvaez MD Number of Addenda: 0 Note Initiated On: 07/11/2024 2:19 PM Scope Withdrawal Time: 0 hours 11 minutes 38 seconds Scope In: 2:28:08 PM Scope Out: 2:42:43 PM Endoscopy Department at [facility] - [address] [place] [phone] Procedure Note Shay Narvaez MD - 07/11/2024 [facility] GI Patient Name: Morro Mckeon Procedure Date: [...] the physician, the nurse, theanesthetist and the speech therapist technician in the pre-procedure area in the [...] without abnormality. Procedure Code(s): --- Professional --- 79450, Colonoscopy, flexible; with biopsy, singleor multiple Diagnosis Code(s): --- Professional --- D12.4, Benign neoplasm of descending colon CPT copyright 2020 [employer]. All rights reserved. The codes documented in this report are preliminary and upon receiver reviewmay be revised to meet current compliance requirements. Shay Narvaez MD 07/11/2024 2:45:41 PM This report has been signed electronically.Shay Narvaez MD Number of Addenda: 0 Note Initiated On: 07/11/2024 2:19 PM Scope Withdrawal Time: 0 hours 11 minutes 38 seconds Scope In: 2:28:08 PM Scope Out: 2:42:43 PM Endoscopy Department at [facility] - [address] [place] [phone] IMPRESSION: - One diminutive polyp in the descending colon, removed with a cold biopsy forceps. Resected and retrieved. - Internal hemorrhoids. - The examination was otherwise normal. Recommendation: - Discharge patient to home. - Await pathology results. - [facility] Shay Narvaez MD GI~PROCEDURE ORDERABLES Fin al [...] category Breast cancer risk not assessed Location: [facility], [address] [place] [address], [place], [address], [phone] Procedure Note Sybil Tam MD - 03/27/2024 This is a summary [...] category Breast cancer risk not assessed Location: [facility], [address] [place] [address], [address], [phone] Result [facility] Angie Aleman MD IMG XR PROCEDURES Final Res ult * Depression Screening (02/24/2024) [facility] Depression Screening Abstracted Result [facility] Historical Provider HEALTH MAINTENANCE Final Result * (ABNORMAL) Lipid panel (02/24/2024) [facility] LDL/HDL Ratio 3 0 - 4 Triglycerides 154(A) 0 - 150 mg/dL Cholesterol 168 0 - 200 mg/dL HDL 49 >=40 mg/dL LDL Cholesterol 89 0 - 100 mg/dL Blood Venous blood specimen / Unknown Result [facility] Historical Provider LAB BLOOD ORDERABLES Sho l Result * HIV Screening (02/23/2018) [facility] HIV Screening Abstracted Result [facility] Provider HEALTH MAINTENANCE Final Result * Hepatitis C Screening (02/23/2018) [facility] Hepatitis C Screening Abstracted Result [facility] Provider HEALTH MAINTENANCE Final Result from Last 3 Months or Most Recently Relevant to Health Maintenance Insurance MEDICARE [place]ICAID - [place] Care Teams Manager Community Outreach Relationship Specialty Start Date End Date Jose J Ceron MD [address] [place] [phone] PCP - General 01/25/07
== END 2025-02-14 12:36 | disposition home or self-care (01) ==
LOC: HO.HAP 12:35
PROVIDERS: Visit Provider Otolaryngology
DX: Z46.1 Encounter for fitting and adjustment of hearing aid (principal); H90.3 Sensorineural hearing loss, bilateral
CPT/HCPCS: V5011; V5020; V5160; V5261

== ENCOUNTER 2025-03-13 10:58 | Outpatient (REF) | payer MEDICARE, MEDICAID, SELFPAY ==
--- OUTSIDE RECORDS SUMMARY | 2025-03-11 07:51 | XMS_ITS | Encounter Summary ---
Author Organization [facility] Address [address] [place] [address] Care Team Providers Care Biomed Tech Name Role Phone Jose J Ceron MD Primary Care Provider [phone] Reason for Referral * Imaging (Routine) - Authorized Specialty Diagnoses / Procedures Referred By Contac t Referred To Contact Radiology Diagnoses Encounter for screening mammogram for malignant neoplasm of breast Procedures MG Mammo Digital Screening w Merna Ferreira NP [address] [place] [address] Phone: tel: fax: [address] Phone: tel: Referral ID Status Reason Start Date Expiration Date V isits Requested Visits Authorized [id number] Authorized 02/25/2025 02/25/2026 1 1 Reason for Visit * Imaging (Routine) - Authorized Specialty Diagnoses / Procedures Referred By Contac t Referred To Contact Radiology Diagnoses Encounter for screening mammogram for malignant neoplasm of breast Procedures MG Mammo Digital Screening w MiltonMerna Rodriguez NP [address] [place] [address] Phone: tel: fax: [address] Phone: tel: Referral ID Status Reason Start Date Expiration Date V isits Requested Visits Authorized [id number] Authorized 02/25/2025 02/25/2026 1 1 Encounter Details Date Type Department Care Team (Latest Contact Info) Description 03/11/2025 7:51 AM EDT - 03/11/2025 11:59 PM EDT Hospital [facility] [address] [address] Encounter for screening mammogram for malignant neoplasm of breast Discharge Disposition: Home or Self Care Social History Tobacco Use Types Packs/Day Years Used Date Smoking Tobacco: Never Smokeless Tobacco: Never Alcohol Use Standard Drinks/Week Comments Yes 0 (1 standard drink = 0.6 oz pur e alcohol) Housing Instability Answer Date Recorde d Are you worried that in the next 2 months you may not have stable housing? Yes 02/25/2025 Food Access & Nutrition Answer Date Rec orded Do you have access to a vari ety of food including fruits and vegetables? Yes 02/25/2025 Access to Healthcare Answer Date Record ed Within the last 3 months, ho w many times did you visit the emergency department for your medical care? 0 02/25/2025 Financial Risk Answer Date Recorded How hard is it for you to pa y for the very basics like food, housing, medical care, and air conditioning / heating? Somewhat hard 02/25/2025 Food Risk Answer Date Recorded Within the past 12 months we worried whether our food would run out before we got money to buy more. Sometimes true 025 Within the past 12 months th e food we bought just didn't last and we didn't have money to get more. Never true 02/25/2025 Living Situation Answer Date Recorded What is your living situation? Unrecognized valu e 02/25/2025 Interpersonal Safety Answer Date Record ed Physical Abuse Unrecognized value 07/11/2024 Verbal Abuse Unrecognized value 07/11/2024 Comments No Sex and Gender Information Value Date Recorded Sex Assigned at Female 07/10/2024 4:05 PM EST Legal Sex Female 11:37 PM EST Gender Identity Female 07/10/2024 4:05 PM EST Sexual Orientation Straight 07/10/2024 4: 05 PM EST documented as of this encounter Last Filed Vital Signs Vital Sign Reading Time Taken Comments Blood Pressure - - Pulse - - Temperature - - Respiratory Rate - - Oxygen Saturation - - Inhaled Oxygen Concentration - - Weight 81.6 kg (180 lb) 03/11/2025 8:03 AM EDT Height 144.8 cm (4' 9 ) 03/11/2025 8:03 AM EDT Body Mass Index 38.95 03/11/2025 8:03 AM EDT documented in this encounter Medications at Time of Discharge alclomethasone (ACLOVATE) 0.05 % cream Apply topically 2 (two) times a day. 30 g 1 02/25/2025 cetirizine (ZyrTEC) 10 mg tabletIndications:A llergic rhinitis, unspecified TAKE 1 TABLET BY MOUTH 1 TIME EACH DAY. 90 tablet 1 12/24/2024 EPINEPHrine (EpiPen 2-Colt) 0.3 mg/0.3 mL injectionIndication s:Encounter for annual physical exam,Mild intermittent asthma without complication,Episod e of recurrent major depressive disorder, unspecified depression episode severity (CMS/HCC V24) Inject 0.3 mL (0.3 mg total) into the thigh if needed for anaphylaxis. 1 each 1 02/25/2025 ergocalciferol (VITAMIN D-2) 1,250 mcg (50,000 unit) capsuleIndications: Vitamin D insufficiency Take 1 capsule (50,000 Units total) by mouth 1 (one) time per week. 12 capsule 02/25/2025 hydrOXYzine HCL (ATARAX) 50 mg tablet Take 1 tablet (50 mg total) by mouth at bedtime as needed. 03/27/2024 levalbuterol (XOPENEX HFA) 45 mcg/actuation inhalerIndications: Mild intermittent asthma without complication,Episod e of recurrent major depressive disorder, unspecified depression episode severity (CMS/HCC V24) Inhale 2 puffs by mouth every 6 (six) hours if needed for wheezing. 3 g 02/27/2025 sertraline (ZOLOFT) 100 mg tablet Take 1 Tablet by mouth daily. documented as of this encounter Discharge Disposition Disposition Code Departure Means Destination Home or Self Care documented in this encounter Plan of Treatment Upcoming Encounters Date Type Department Care Team (Late st Contact Info) Description 04/15/2025 10:00 AM EST Consult Bariatric Surgery - [place] [address] [facility] [address] [place] [address] Alethea Eugene MD [address] [place] [address] 08/26/2025 11:30 AM EDT Office Visit Adult Medicine [facility] [address], [place] [phone] Jose J Ceron MD [address] [place], [place] documented as of this encounter Procedures Procedure Name Priority Date/Time Associated Diagnosis Comments MG MAMMO DIGITAL SCREENING W MILTON BILAT Routine 03/11/2025 8:08 AM EDT Encounter for screening mammogram for malignant neoplasm of breast documented in this encounter Results * MG Mammo Digital Screening w Milton bilat (03/11/2025 8:08 AM EDT) Anatomical Region Laterality Modality Breast Bilateral Mammography 03/11/2025 4:02 PM EDT Impressions 03/11/2025 4:22 PM EDT Benign. BI-RADS CATEGORY: 1 - NEGATIVE RECOMMENDATION: Screening bilateral mammogram is recommended in 1 year. Mammo Location: [facility], [address], [place], [address], . -------- FINAL REPORT -------- Dictated By: Domo Guillen Dictated Date: 03/11/2025 16:02 ET Assigned Physician: Domo Guillen Reviewed and Electronically Signed By: Domo Guillen Signed Date: 03/11/2025 16:22 ET Workstation ID: [id number] Transcribed By: Self Edit Transcribed Date: 03/11/2025 16:02 ET Narrative 03/11/2025 4:22 PM EDT CLINICAL: 49 years old, Female, routine annual exam. COMPARISON: 02/28/2024 TECHNIQUE: Bilateral MLO and CC views were obtained digitally with 3-D mammogram (digital breast tomosynthesis). Computer-aided detection was utilized in evaluation of this exam (CAD). FINDINGS: No suspicious mass or architectural distortion. No suspicious calcification. There has been no significant change from prior exam(s). BREAST DENSITY: B - There are scattered areas of fibroglandular density. Procedure Note Domo Guillen MD - 03/11/2025 CLINICAL: 49 years old, Female, routine annual exam. COMPARISON: 02/28/2024 TECHNIQUE: Bilateral MLO and CC views were obtained digitally with 3-Dmammogram (digital breast tomosynthesis). Computer-aided detection wasutilized in evaluation of this exam (CAD). FINDINGS: No suspicious mass or architectural distortion. No suspiciouscalcification. There has been no significant change from prior exam(s). BREAST DENSITY: B - There are scattered areas of fibroglandular density. IMPRESSION: Benign. BI-RADS CATEGORY: 1 - NEGATIVE RECOMMENDATION: Screening bilateral mammogram is recommended in 1 year. Mammo Location: [facility], [address] [place] [address], [id number], . -------- FINAL REPORT -------- Dictated By: Domo Guillen Dictated Date: 03/11/2025 16:02 ET Assigned Physician: Domo Guillen Reviewed and Electronically Signed By: Domo Guillen Signed Date: 03/11/2025 16:22 ET Workstation ID: [id number] Transcribed By: Self Edit Transcribed Date: 03/11/2025 16:02 ET us Merna Carballo WELDING MACHINE OPERATOR ELECTRO GAS IMG BI PROCEDURES Final Resul t documented in this encounter Visit Diagnoses Diagnosis Encounter for screening mammogram for malignant neoplasm of breast documented in this encounter Additional Health Concerns Assessment Noted Time PHQ-9 Depression Total Score: 22 025 9:52 AM EDT documented as of this encounter Care Teams Biomed Tech Relationship Specialty Start Date End Date Jose J Ceron MD [address] [place] [phone] PCP - General 01/25/07 documented as of this encounter
--- NOTE | 2025-03-13 11:20 | MHC.AU.HA3 ---
Hearing Instrument Follow-Up- Binaural Date of Visit: 03/13/25 Right Ear: Make, Model, Color, Serial Number: Oticon Intent 2 miniRITE-R SN: [id number] Color: Chroma Beige Bluing Oven Tender Repair Warranty: 02/14/2028 Bluing Oven Tender Loss and Damage Warranty: 02/14/2028 [facility] [place] Service Plan: 02/14/2026 Battery Size: Rechargeable Sourcing Assistant/Slim Tube: 2/85 Earmold/Dome/CShell/SlimTip:8mm double guillory dome (no retention tail) Type of Wax Guard: miniFit Dispensed By: [facility] [place] Date of Fittin02/14/2025 Left Ear: Make, Model, Color, Serial Number: Oticon Intent 2 miniRITE-R SN: [id number] Color: Chroma Beige Bluing Oven Tender Repair Warranty: 02/14/2028 Bluing Oven Tender Loss and Damage Warranty: 02/14/2028 [facility] [place] Service Plan: 02/14/2026 Battery Size: Rechargeable Sourcing Assistant/Slim Tube: 2/85 Earmold/Dome/CShell/SlimTip: 8mm double guillory dome (no retention tail) Type of Wax Guard: miniFit Dispensed By: [facility] [place] Date of Fittin02/14/2025 Follow-Up Summary: Reported significant benefit from HAs until a few days ago when left CONTI stopped working. Upon inspection, left microbiological laboratory technician was not fully inserted into CONTI. Once reconnected, CONTI working well. Noted able to understand conversations better, speech clearer; however, own voice still loud. Data logging <1 hour of use/day. Discussed importance of daily, consistent use again, especially in relation to acclimating to own voice. Strongly encouraged more use. Discussed EMs again, recommending them based on severity of hearing loss. However, given current aversion to own voice and minimal use of HAs, opted to continue with domes for now until more acclimated to amplification. Advised to schedule appointment for NIRMAL when she is ready to proceed. Recommendations: Hearing instrument follow-up or maintenance as needed. Please contact our clinic with any questions or concerns. Diagnosis Code(s): Primary Diagnosis: H90.3 Bilateral Sensorineural Hearing Loss Signature: Provider: Delores Jones, [facility]
--- OUTSIDE RECORDS SUMMARY | 2025-03-13 13:27 | XMS_ITS | Clinical Summary ---
Author Organization [facility] Address [address] [place] [address] Phone Care Team Providers Care Supervisor Cutting And Boning Name Role Phone Jose J Ceron MD Primary Care Provider [phone] Allergies Active Allergy Reactions Criticality Noted Date Comments Adhesive Tape-Silicones 09/18/2020 Needs PAPER tape Ibuprofen Hives 09/27/2016 Latex Hives Medium 07/03/2024 Medications sertraline (ZOLOFT) 100 mg tablet Take 1 Tablet by mouth daily. Active hydrOXYzine HCL (ATARAX) 50 mg tablet Take 1 tablet (50 mg total) by mouth at bedtime as needed. 03/27/20 24 Active cetirizine (ZyrTEC) 10 mg tabletIndication s:Allergic rhinitis, unspecified TAKE 1 TABLET BY MOUTH 1 TIME EACH DAY. 90 tablet 1 12/25/19 25 Active EPINEPHrine (EpiPen 2-Colt) 0.3 mg/0.3 mL injectionIndicat ions:Encounter for annual physical exam,Mild intermittent asthma without complication,Epi sode of recurrent major depressive disorder, unspecified depression episode severity (CMS/HCC V24) Inject 0.3 mL (0.3 mg total) into the thigh if needed for anaphylaxis. 1 each 1 02/26/20 25 Active alclomethasone (ACLOVATE) 0.05 % cream Apply topically 2 (two) times a day. 30 g 1 02/26/20 25 026 Active levalbuterol (XOPENEX HFA) 45 mcg/actuation inhalerIndicatio ns:Mild intermittent asthma without complication,Epi sode of recurrent major depressive disorder, unspecified depression episode severity ([facility] V24) Inhale 2 puffs by mouth every 6 (six) hours if needed for wheezing. 3 g 02/28/20 Active ergocalciferol (VITAMIN D-2) 1,250 mcg (50,000 unit) capsuleIndicatio ns:Vitamin D insufficiency Take 1 capsule (50,000 Units total) by mouth 1 (one) time per week. 12 capsule 02/26/20 25 025 Active albuterol sulfate (ProAir RespiClick) 90 mcg/actuation aerosol powdr breath activated 02/24/20 24 025 Discontinued(R eorder) EPINEPHrine (EpiPen 2-Colt) 0.3 mg/0.3 mL injection Inject 0.3 mg into the muscle as needed for Other (anaphylacti c reaction). 2-pack. Fill with whichever brand is covered by insurance. 05/16/20 20 025 Discontinued(R eorder) alclomethasone (ACLOVATE) 0.05 % cream Apply topically 2 (two) times a day. 30 g 11/22/19 25 025 Discontinued(R eorder) nitrofurantoin, macrocrystal-mon ohydrate, (MACROBID) 100 mg capsule Take 1 capsule (100 mg total) by mouth 2 (two) times a day for 5 days. 10 each 02/09/20 25 025 albuterol sulfate (ProAir RespiClick) 90 mcg/actuation aerosol powdr breath activatedIndicat ions:Mild intermittent asthma without complication,Epi sode of recurrent major depressive disorder, unspecified depression episode severity ([facility] V24) Inhale 1 puff by mouth 4 (four) times a day if needed (asthma). 1 each 02/26/20 25 025 Discontinued Active Problems Problem Noted Date Diagnosed Date Asthma 04/05/2024 Ingrown hair 05/03/2023 Overview (04/05/2024): Last Assessment & Plan: In right axilla. REassured not related to breast. Likely related to shaving. Take care and maybe avoid shaving for a couple weeks to see if resolves. Vitamin D deficiency 07/30/2021 Mixed hyperlipidemia 09/18/2019 Cervical spondylosis 07/04/2019 Major depression, recurrent (CMS/[facility] V24) 2018 Overview (04/05/2024): Last Assessment & [...] obesity with BMI of 4 0.0-44.9, adult (CMS/HCC V24, CMS/HCC V28) 09/27/2016 Insomnia 07/22/2016 Gastric perforation (CMS/HCC V24, CMS/HCC V28) 0 12/31/2014 GERD (gastroesophageal reflux disease) 3 Headache 08/02/2008 Encounters Date Type Department Care Team Description 03/11/2025 7:51 AM EDT - 03/11/2025 11:59 PM EDT [facility] [address] [phone] Encounter for screening mammogram for malignant neoplasm of breast Discharge Disposition: Home or Self Care 02/25/2025 9:00 AM EDT Office Visit Adult Medicine [address] [phone] Merna Carballo MINE LABORER Encounter for annual physical exam (Primary Dx); Mild intermittent asthma without complication; Episode of recurrent major depressive disorder, unspecified depression episode severity (CMS/HCC V24); Vitamin D insufficiency; Encounter for screening mammogram for malignant neoplasm of breast; Class 2 obesity without serious comorbidity with body mass index (BMI) of 37.0 to 37.9 in adult, unspecified obesity type 02/25/2025 Results Follow-Up [address] [phone] Merna Carabllo NP 02/06/2025 11:15 AM EDT Office Visit [address] [phone] Jaymie Ander PA Dysuria (Primary Dx) 02/06/2025 Nurse Triage [address] [phone] Jose J Ceron MD from Last 3 Months Immunizations Immunization Administration Dates Next Due Moderna SARS-CoV-2 COVID-19, [...] Comments Breast cancer Aunt 1 m 65 mothers side. Throat cancer Aunt 2 mothers side Other: unknown cancer Aunt 3 metast asized, unknown primary Breast cancer Cousin Other: retinoblastoma Daughter 2 year s old. Diabetes Maternal Grandmother Hypertension Maternal Grandmother Diabetes Mother Hypertension Mother Heart attack Uncle Colon cancer Neg Hx Ovarian cancer Neg Hx Pancreatic cancer Neg Hx Prostate cancer Neg Hx Uterine cancer Neg Hx Relation Name Status Comments Aunt 1 m 65 Alive Aunt 2 Aunt 3 Cousin Daughter Maternal Grandmother Mother Uncle Social History [...] 07/10/2024 4: 05 PM EST Obstetrics History Para Term AB IAB SAB Ectopic Multiple Livin g Live Births 3 Last Filed Vital Signs Vital Sign Reading Time Taken Comments Blood Pressure 109/71 02/25/2025 9:03 AM EDT Pulse 66 02/25/2025 9:03 AM EDT Temperature 36.4 C (97.6 F) 02/25/2025 9:03 AM EDT Respiratory Rate 14 02/25/2025 9:03 AM EDT Oxygen Saturation 98% 02/06/2025 11:29 AM EDT Inhaled Oxygen Concentration - - Weight 81.6 kg (180 lb) 03/11/2025 8:03 AM EDT Height 144.8 cm (4' 9 ) 03/11/2025 8:03 AM EDT Body Mass Index 38.95 03/11/2025 8:03 AM EDT Plan of Treatment Upcoming Encounters Date Type Department Care Team (Late st Contact Info) Description 04/15/2025 10:00 AM EST Consult Bariatric Surgery - [place] [address] [place] [phone] Alethea Eugene MD [address] [place] [address] 08/26/2025 11:30 AM EDT Office Visit Adult Medicine [facility] [address] [place] [address] Jose J Ceron MD [address] [place] [address] Health Maintenance Due Date Last Done Comments Hepatitis B Vaccines (1 of 3 - 19+ 3-dose series) 1993 Pneumococcal Vaccine: 50+ Years (1 of 2 - PCV) 1993 Medicare Annual Wellness Visit 05/02/2022 RSV Immunization Adult Patients (1 - Risk 50-74 years 1-dose series) 2024 Zoster Vaccines (1 of 2) 2024 COVID-19 Vaccine (3 - 2024- season) 2025 11/14/2020, 10/21/2020 Influenza Vaccine (#1) 2025 Social Influencers of Health Screening 02/25/2026 02/25/2025 Breast Cancer Screening 03/11/2027 03/11/20, 02/28/2024, 02/28/2024, Additional history exists DTaP,Tdap,and Td Vaccines (3 - Td or Tdap) 02/17/2030 02/18/2020, 04/16/2008 Cholesterol Screening (Lipid Panel) 02/25/2030 02/25/2025, 02/24/2024, 02/24/2024 Colorectal Cancer Screening: Colonoscopy 07/11/2034 07/11/2024 HIV Screening Completed 02/23/2018 Hepatitis C Screening Completed 02/23/2018 Depression Screening Completed 02/25/2025, 02/24/20 24 HIB Vaccines Aged Out No longer eligi [...] 20 months Aged Out No longer eligible based on patient's age to complete this topic Varicella Vaccines Aged Out No longer eligible based on patient's age to complete this topic Procedures Procedure Name Priority Date/Time Associated Diagnosis Comments MG MAMMO DIGITAL SCREENING W MILTON BILAT Routine 03/11/2025 8:08 AM EDT Encounter for screening mammogram for malignant neoplasm of breast COMPREHENSIVE METABOLIC PANEL Routine 02/25/2025 10:12 AM EDT Encounter for annual physical exam LIPID PANEL WITH REFLEX TO DIRECT LDL Routine 02/25/2025 10:12 AM EDT Encounter for annual physical exam HEMOGLOBIN A1C Routine 02/25/2025 10:12 AM EDT Encounter for annual physical exam VITAMIN D 25 HYDROXY Routine 02/25/2025 10:12 AM EDT Encounter for annual physical exam Vitamin D insufficiency PIKE URINE CULTURE TUBE Routine 02/07/20 25 12:26 PM EDT Dysuria URINALYSIS WITH REFLEX MICROSCOPIC AND CULTURE Routine 02/06/2025 11:58 AM EDT Dysuria URINALYSIS WITH REFLEX MICROSCOPIC AND CULTURE Routine 02/06/2025 11:58 AM EDT Dysuria CULTURE URINE Routine 02/06/2025 11:58 AM EDT Dysuria POLYSOMNOGRAPHY Routine 01/18/2025 10:49 AM EDT COLONOSCOPY Routine 07/11/2024 2:43 PM EST Colon cancer screening DEPRESSION SCREENING Routine 02/24/2024 HEPATITIS C SCREENING Routine 02/23/2018 HIV SCREENING Routine 02/23/2018 from Last 3 Months or Most Recently Relevant to Health Maintenance Results * MG Mammo Digital Screening w Milton bilat (03/11/2025 8:08 AM EDT) Anatomical Region Laterality Modality Breast Bilateral Mammography 03/11/2025 4:02 PM EDT Impressions 03/11/2025 4:22 PM EDT Benign. BI-RADS CATEGORY: 1 - NEGATIVE RECOMMENDATION: Screening bilateral mammogram is recommended in 1 year. Mammo Location: [facility], [address] [place] [address], [id number], . -------- FINAL REPORT -------- Dictated By: Domo Guillen Dictated Date: 03/11/2025 16:02 ET Assigned Physician: Domo Guillen Reviewed and Electronically Signed By: Domo Guillen Signed Date: 03/11/2025 16:22 ET Workstation ID: [id number] Transcribed By: Self Edit Transcribed Date: 03/11/2025 [...] year. Mammo Location: [facility], [address] [place] [address], [phone], . -------- FINAL REPORT -------- Dictated By: Domo Guillen Dictated Date: 03/11/2025 16:02 ET Assigned Physician: Domo Guillen Reviewed and Electronically Signed By: Domo Guillen Signed Date: 03/11/2025 16:22 ET Workstation ID: [id number] Transcribed By: Self Edit Transcribed Date: 03/11/2025 16:02 ET us Merna Carballo MINE LABORER IMG BI PROCEDURES Final Resul t * (ABNORMAL) Lipid panel with reflex to direct LDL (02/25/2025 10:12 AM EDT) Cholesterol 195 0 - 200 mg/dL LAB CHEMISTRY METHOD 02/25/2025 4:40 PM EDT [facility] Triglycerides 129 0 - 150 mg/dL LAB CHEMISTRY METHOD 02/25/2025 4:40 PM EDT [facility] HDL 63 >=40 mg/dL LAB CHEMISTRY METHOD 02/25/2025 4:40 PM EDT [facility] LDL Calculated 106(H) 0 - 100 mg/dL LAB CHEMISTRY METHOD 02/25/2025 4:40 PM EDT [facility] Comment:Estimated LDL Calcul ated using equation: Total cholesterol - HDL cholesterol - (Triglycerides/5) VLDL Cholesterol Hasmukh 25.8 mg/dL LAB CHEMISTRY METHOD 02/25/2025 4:40 PM EDT [facility] Non HDL Chol. (LDL+VLDL) 132 <145 mg/dL LAB CHEMISTRY METHOD 02/25/2025 4:40 PM EDT [facility] Chol/HDL Ratio 3.1 0.0 - 4.4 LAB CHEMISTRY METHOD 02/25/2025 4:40 PM EDT [facility] Blood Venous blood specimen / Unknown Venipuncture / Unknown 02/25/2025 10:12 AM EDT 02/25/2025 10:12 AM EDT us Merna Carballo MINE LABORER LAB BLOOD ORDERABLES Final Re sult Performing Organization Address [facility]/ZIP Co de Phone Number [facility] [address] [place] [address], [place] [phone] * (ABNORMAL) Vitamin D 25 hydroxy (02/25/2025 10:12 AM EDT) Pathologist [facility] Vit D, 25-Hydroxy 16.7(L) 30.0 - 80.0 ng/mL LAB CHEMISTRY METHOD 02/25/2025 5:34 PM EDT [facility] Blood Venous blood specimen / Unknown Venipuncture / Unknown 02/25/2025 10:12 AM EDT 02/25/2025 10:12 AM EDT us Merna Carballo MINE LABORER LAB BLOOD ORDERABLES Final Re sult Performing Organization Address [facility]/ZIP Co de Phone Number [facility] [address] [place] [address], [place] [phone] * Hemoglobin A1c (02/25/2025 10:12 AM EDT) Hemoglobin A1C 4.8 <6.5 % LAB CHEMISTRY METHOD 02/25/2025 2:16 PM EDT [facility] Mean Bld Glu Estim. 91 mg/dL LAB CHEMISTRY METHOD 02/25/2025 2:16 PM T [facility] Blood Venous blood specimen / Unknown Venipuncture / Unknown 02/25/2025 10:12 AM EDT 02/25/2025 10:12 AM EDT us Merna Carballo MINE LABORER LAB BLOOD ORDERABLES Final Re sult [facility] [address] [place] [address], [place] [phone] * Comprehensive metabolic panel (02/25/2025 10:12 AM EDT) Sodium 141 133 - 145 mmol/L LAB CHEMISTRY METHOD 02/25/2025 4:40 PM [facility] Potassium 4.0 3.5 - 5.5 mmol/L LAB CHEMISTRY METHOD 02/25/2025 4:40 PM [facility] Chloride 107 96 - 110 mmol/L LAB CHEMISTRY METHOD 02/25/2025 4:40 PM [facility] CO2 29 21 - 32 mmol/L LAB CHEMISTRY METHOD 02/25/2025 4:40 PM [facility] Anion Gap 5 3 - 11 LAB CHEMISTRY METHOD 02/25/2025 4:40 PM [facility] Glucose 96 70 - 100 mg/dL LAB CHEMISTRY METHOD 02/25/2025 4:40 PM [facility] BUN 8 5 - 25 mg/dL LAB CHEMISTRY METHOD 02/25/2025 4:40 PM [facility] Creatinine 0.76 0.50 - 1.10 mg/dL LAB CHEMISTRY METHOD 02/25/2025 4:40 PM [facility] eGFR 96 >=60 mL/min/1. 73m2 LAB CHEMISTRY METHOD 02/25/2025 4:40 PM [facility] Comment:Calculation based on the Chronic Kidney Disease Epidemiology Collaboration (CKD-EPI) equation refit without adjustment for race. BUN/Creatinine Ratio 10.5 LAB CHEMISTRY METHOD 02/25/2025 4:40 PM EDT [facility] Calcium 9.2 8.5 - 10.5 mg/dL LAB CHEMISTRY METHOD 02/25/2025 4:40 PM [facility] AST (SGOT) 21 10 - 42 unit/L LAB CHEMISTRY METHOD 02/25/2025 4:40 PM [facility] ALT (SGPT) 34 10 - 60 unit/L LAB CHEMISTRY METHOD 02/25/2025 4:40 PM [facility] Alkaline Phosphatase 93 42 - 121 unit/L LAB CHEMISTRY METHOD 02/25/2025 4:40 PM [facility] Total Protein 7.2 6.0 - 8.0 g/dL LAB CHEMISTRY METHOD 02/25/2025 4:40 PM [facility] Albumin 3.9 3.2 - 5.0 g/dL LAB CHEMISTRY METHOD 02/25/2025 4:40 PM [facility] Total Bilirubin 0.9 0.0 - 1.4 mg/dL LAB CHEMISTRY METHOD 02/25/2025 4:40 PM T [facility] Blood Venous blood specimen / Unknown Venipuncture / Unknown 02/25/2025 10:12 AM EDT 02/25/2025 10:12 AM EDT us Merna Carballo MINE LABORER LAB BLOOD ORDERABLES Final Re sult [facility] [address] [place] [address], * Pike urine culture tube (02/06/2025 12:26 PM EDT) Extra Tube Hold for add-ons. 02/06/2025 3:01 PM EDT [facility] Comment:Auto resulted. Urine Urine specimen obtained by clean catch procedure / Unknown Non-blood Collection / Unknown 02/06/2025 12:26 PM EDT 02/06/2025 12:26 PM EDT us Jaymie SALDIVAR LAB URINE ORDERABLES Final Re sult [facility] [address] [place] [address], [place] [phone] * (ABNORMAL) Urinalysis with reflex microscopic and culture (02/06/2025 11:58 AM EDT) Specific [place] Urine 1.011 1.003 - 1.030 LAB URINALYSIS - AUTOMATED METHOD 02/06/2025 2:12 PM [facility] pH, Urine 8.0 5.0 - 8.0 pH LAB URINALYSIS - AUTOMATED METHOD 02/06/2025 2:12 PM [facility] Leukocytes, Urine Trace(A) Negative LAB URINALYSIS - AUTOMATED METHOD 02/06/2025 2:12 PM [facility] Nitrite, Urine Negative Negative LAB URINALYSIS - AUTOMATED METHOD 02/06/2025 2:12 PM [facility] Protein, Urine Negative <=Trace mg/dL LAB URINALYSIS - AUTOMATED METHOD 02/06/2025 2:12 PM [facility] Glucose, Urine Negative Negative mg/dL LAB URINALYSIS - AUTOMATED METHOD 02/06/2025 2:12 PM [facility] Ketones, Urine Negative Negative mg/dL LAB URINALYSIS - AUTOMATED METHOD 02/06/2025 2:12 PM [facility] Urobilinogen , Urine 0.2 0.2 - 1.0 mg/dL LAB URINALYSIS - AUTOMATED METHOD 02/06/2025 2:12 PM [facility] Bilirubin, Urine Negative Negative LAB URINALYSIS - AUTOMATED METHOD 02/06/2025 2:12 PM EDT [facility] Blood, Urine Negative Negative LAB URINALYSIS - AUTOMATED METHOD 02/06/2025 2:12 PM T [facility] RBC, Urine 1.8 0 - 4 /HPF LAB URINALYSIS - AUTOMATED METHOD 02/06/2025 2:12 PM EDT [facility] WBC, Urine 31.9(H) 0 - 4 /HPF LAB URINALYSIS - AUTOMATED METHOD 02/06/2025 2:12 PM EDT [facility] Squamous Epithelial, Urine 55 0 - 60 /LPF LAB URINALYSIS - AUTOMATED METHOD 02/06/2025 2:12 PM [facility] Bacteria, Urine Moderate(A) Negative /HPF LAB URINALYSIS - AUTOMATED METHOD 02/06/2025 2:12 PM [facility] Hyaline Casts, Urine 3.2(H) 0 - 3 /LPF LAB URINALYSIS - AUTOMATED METHOD 02/06/2025 2:12 PM [facility] Urine Urine specimen obtained by clean catch procedure / Unknown Non-blood Collection / Unknown 02/06/2025 11:58 AM EDT 02/06/2025 11:58 AM EDT Jaymie SALDIVAR LAB URINE ORDERABLES Final Re sult [facility] [address] [place] [address], * (ABNORMAL) Culture urine (02/06/2025 11:58 AM EDT) Culture, Urine 50,000-100,000 CFU/mL Escherichia coli(A) FLAKO 02/09/2025 9:26 AM EDT [facility] Comment: The organism value for this [...] MICROBIOLOGY - GENERAL OR DERABLES Final Result Performing Organization Address City/State/[facility] Co de Phone Number [facility] [address] [place] [address], * Polysomnography (01/18/2025 10:49 AM EDT) Historical Provider SLEEP CENTER ORDERABLES F inal Result * COLONOSCOPY Anesthesia - MAC; [facility] ENDOSCOPY (07/11/2024 2:43 PM EST) Anatomical Region [...] for surveillance. Narrative 07/11/2024 2:[address] [facility] Patient Name: Morro Mckeon Procedure Date: [...] verified by the physician, the nurse, the press smith helper and the pc technician in the pre-procedure area in the [...] without abnormality. Procedure Code(s): --- Professional --- 14222, Colonoscopy, flexible; with biopsy, single or multiple Diagnosis Code(s): --- Professional --- D12.4, Benign neoplasm of descending colon CPT copyright 2020 [employer]. All rights reserved. The codes documented in this report are preliminary and upon front office help review may be revised to meet current compliance requirements. Shay Narvaez MD 07/11/2024 2:45:41 PM This report has been signed electronically.Shay Narvaez MD Number of Addenda: 0 Note Initiated On: 07/11/2024 2:19 PM Scope Withdrawal Time: 0 hours 11 minutes 38 seconds Scope In: 2:28:08 PM Scope Out: 2:42:43 PM Endoscopy Department at [facility] - [address] [place] [phone] Procedure Note Shay Narvaez MD - 07/11/2024 [facility] Patient Name: Morro Mckeon Procedure Date: [...] the physician, the nurse, theanesthetist and the pc technician in the pre-procedure area in the [...] without abnormality. Procedure Code(s): --- Professional --- 69675, Colonoscopy, flexible; with biopsy, singleor multiple Diagnosis Code(s): --- Professional --- D12.4, Benign neoplasm of descending colon CPT copyright 2020 [employer]. All rights reserved. The codes documented in this report are preliminary and upon front office help reviewmay be revised to meet current compliance requirements. Shay Narvaez MD 07/11/2024 2:45:41 PM This report has been signed electronically.Shay Narvaez MD Number of Addenda: 0 Note Initiated On: 07/11/2024 2:19 PM Scope Withdrawal Time: 0 hours 11 minutes 38 seconds Scope In: 2:28:08 PM Scope Out: 2:42:43 PM Endoscopy Department at [address] [phone] IMPRESSION: - One diminutive polyp in the descending colon, removed with a cold biopsy forceps. Resected and retrieved. - Internal hemorrhoids. - The examination was otherwise normal. Recommendation: - Discharge patient to home. - Await pathology results. - Repeat colonoscopy in 10 years forsurveillance. Shay Narvaez MD GI~PROCEDURE ORDERABLES Fin al Result * Depression Screening (02/24/2024) Depression Screening Abstracted Historical Provider HEALTH MAINTENANCE Final Result * HIV Screening (02/23/2018) Pathologist [facility] HIV Screening Abstracted Result [facility] Historical Provider HEALTH MAINTENANCE Final Result * Hepatitis C Screening (02/23/2018) Hepatitis C Screening Abstracted Historical Provider HEALTH MAINTENANCE Final Result from Last 3 Months or Most Recently Relevant to Health Maintenance Insurance MEDICARE [place]ICAID [place] Care Teams Supervisor Cutting And Boning Relationship Specialty Start Date End Date Jose J Ceron MD [address] [place] [phone] PCP - General 01/25/07
--- OUTSIDE RECORDS SUMMARY | 2025-03-13 13:27 | XMS_ITS | Encounter Summary ---
[facility] Organization [facility] Address [address] [place] [address] Care Team Providers Care Meat Smoker Name Role Phone Jose J Ceron MD Primary Care Provider [phone] Encounter Details Date Type Department Care Team (Late st Contact Info) Description 02/25/2025 Results Follow-Up Adult Medicine [facility] [address] [place] [address] Merna Carballo, GLASS TECHNICIAN [address], [place] Social History Tobacco Use Types Packs/Day Years [...] 07/11/2024 Verbal Abuse Unrecognized value 07/11/2024 Comments Unknown Sex and Gender Information Value Date Recorded Sex Assigned at Female 07/10/2024 4:05 PM EST Legal Sex Female 11:37 PM EST Gender Identity Female 07/10/2024 4:05 PM EST Sexual Orientation Straight 07/10/2024 4: 05 PM EST documented as of this encounter Ordered Prescriptions Prescription Sig Dispense Quantity Refills Last Filled Start Date End Date ergocalciferol (VITAMIN D-2) 1,250 mcg (50,000 unit) capsuleIndications: Vitamin D insufficiency Take 1 capsule (50,000 Units total) by mouth 1 (one) time per week. 12 capsule 02/25/2025 documented in this encounter Progress Notes * Merna Carballo NP - 03/06/2025 3:27 PM EDT Vitamin D, already ordered since 02/25/2025 documented in this encounter Plan of Treatment Upcoming Encounters Date Type Department Care Team (Late st Contact Info) Description 04/15/2025 10:00 AM EST Consult Bariatric Surgery - [address] [place] [address] Alethea Eugene MD [address] [place] [address] 08/26/2025 11:30 AM EDT Office Visit Adult Medicine [address] [phone] Jose J Ceron MD [address] [place] [address] Scheduled Orders Name Type Priority Associated Diagnoses Orde r Schedule Vitamin D 25 hydroxy Lab Routine Vitamin D insufficiency Expected: 05/27/2025, Expires: 02/25/2026 documented as of this encounter Visit Diagnoses Diagnosis Vitamin D insufficiency- Primary documented in this encounter Additional Health Concerns Assessment Noted Time PHQ-9 Depression Total Score: 22 025 9:52 AM EDT documented as of this encounter Care Teams Meat Smoker Relationship Specialty Start Date End Date Jose J Ceron MD [address] [place] [phone] PCP - General 01/25/07 documented as of this encounter
== END 2025-03-13 10:59 | disposition home or self-care (01) ==
LOC: HO.HAP 10:58
PROVIDERS: Visit Provider Internal Medicine
DX: Z13.89 Encounter for screening for other disorder (principal)